=== PATIENT | female | born 1970 | race Caucasian/White ===

== ENCOUNTER 2021-04-05 06:10 | Day surgery (SDC) | payer OTHER ==
[~2021-04-05] VITALS: Ht 167.6 cm; Wt 72.7 kg
[2021-04-05] MEDS ORDERED: ALBUTEROL SULFATE 2.5 MG/0.5 ML NEB SOLUTION NEB ONE (06:11)
[2021-04-05] MEDS ORDERED: LIDOCAINE 4% 50 ML SOLUTION TP ONE (06:11)
[2021-04-05] MEDS ORDERED: BENZOCAINE 20% 50 MCG/SPRAY 57 GM TP ONE (06:11)
[2021-04-05] MEDS ORDERED: LIDOCAINE 2% 30 ML JELLY TP ONE (06:11)
[2021-04-05] MEDS ORDERED: SODIUM CHLORIDE 0.9% 1,000 ML ONE ×2 (06:45→07:09)
[2021-04-05 07:22] LABS: COVID AG,FIA SOURCE NASAL SWAB
[2021-04-05] MEDS ORDERED: SODIUM CHLORIDE 0.9% 1,000 ML IV ONE (07:30)
[2021-04-05] MEDS ORDERED: MIDAZOLAM HCL 5 MG/ML VIAL ONE (07:54)
[2021-04-05] MEDS ORDERED: FentaNYL CITRATE PF 100 MCG/2 ML VIAL ONE (07:54)
[2021-04-05] MEDS ORDERED: MethylPREDNISolone SOD SUCC 125 MG/2 ML VIAL IVP ONE (08:30)
[2021-04-05] MEDS ORDERED: MethylPREDNISolone SOD SUCC 125 MG/2 ML VIAL ONE (08:31)
[2021-04-05] MEDS ORDERED: OXYGEN THERAPY IH SCH (20:00)
== END 2021-04-05 10:10 | disposition home or self-care (01) ==
LOC: SURGERY 06:10
PROVIDERS: ATTEND Internal Medicine Critical Care Medicine
DX: R05.3 Chronic cough (principal); R06.2 Wheezing; R49.0 Dysphonia; R91.1 Solitary pulmonary nodule; Z79.899 Other long term (current) drug therapy
CPT/HCPCS: 31623; 31624; 71045; 87070; 87101; 87206; 87220; 87426; 88184; 88185; C9803; J2250; J2930; J3010; J7030; 87015; 88112; 88312; J7613; Z7610

== ENCOUNTER 2023-07-10 06:05 | Day surgery (SDC) | payer OTHER ==
[~2023-07-10] VITALS: Ht 167.6 cm; Wt 78.2 kg
[~2023-07-10 06:05] MED LIST: FAMO20 PO; PANT-31 PO
[2023-07-10] MEDS ORDERED: SODIUM CHLORIDE 0.9% 1,000 ML ONE (06:27)
[2023-07-10] MEDS: SODIUM CHLORIDE 0.9% 1,000 ML IV ONE (07:35)
[2023-07-10] MEDS ORDERED: MIDAZOLAM HCL 2 MG/2 ML VIAL ONE (08:18)
[2023-07-10] MEDS ORDERED: FentaNYL CITRATE PF 100 MCG/2 ML VIAL ONE (08:18)
[2023-07-10 08:50] VITALS: PULSE 54; RESP 18; O2SAT 98
[2023-07-10] MEDS ORDERED: MethylPREDNISolone SOD SUCC 125 MG/2 ML VIAL ONE (09:21)
[2023-07-10] MEDS: MethylPREDNISolone SOD SUCC 125 MG/2 ML VIAL IVP ONE (09:23)
[2023-07-10] MEDS ORDERED: LIDOCAINE 2% 11 ML JELLY ONE (12:00)
[2023-07-10] MEDS ORDERED: BENZOCAINE 20% 50 MCG/SPRAY 57 GM ONE (12:00)
[2023-07-10] MEDS ORDERED: LIDOCAINE 4% 50 ML SOLUTION ONE (12:00)
[2023-07-10] MEDS ORDERED: ALBUTEROL SULFATE 2.5 MG/0.5 ML NEB SOLUTION NEB ONE (12:00)
[2023-07-11] MEDS ORDERED: BENZOCAINE 20% 50 MCG/SPRAY 57 GM ONE (14:40)
[2023-07-11] MEDS ORDERED: LIDOCAINE 2% 11 ML JELLY ONE (14:40)
[2023-07-11] MEDS ORDERED: ALBUTEROL SULFATE 2.5 MG/0.5 ML NEB SOLUTION NEB ONE (14:40)
[2023-07-11] MEDS ORDERED: LIDOCAINE 4% 50 ML SOLUTION ONE (14:40)
== END 2023-07-10 10:35 | disposition home or self-care (01) ==
LOC: SURGERY 06:05
PROVIDERS: ATTEND Internal Medicine Critical Care Medicine
DX: J38.4 Edema of larynx (principal); B37.0 Candidal stomatitis; Z90.710 Acquired absence of both cervix and uterus; Z98.890 Other specified postprocedural states; E78.00 Pure hypercholesterolemia, unspecified; Z79.899 Other long term (current) drug therapy
CPT/HCPCS: 31623; 87206; 87101; 87220; 87070; 88108; 31624; 71045; 87015; J3010; J2250; J2919; Q9967; J7030; J7613; Z7610